=== PATIENT | female | born 1985 | race Two or more races ===

== ENCOUNTER 2018-02-28 10:26 | Inpatient (IN) | payer OTHER ==
[2018-02-28] MEDS: AMPICILLIN 1 GM PDS 1 GM in SODIUM CHLORIDE 0.9% 100 ML 100 ML IV SCH ×2 (00:15→20:10)
[2018-02-28] MEDS ORDERED: SODIUM CHLORIDE 0.9% FLUSH 10 ML SOL IV PRN (13:49)
[2018-02-28] MEDS ORDERED: FENTANYL 100MCG/2ML SOL IV PRN (13:49)
[2018-02-28] MEDS ORDERED: METHYLERGONOVINE MALEATE 0.2 MG/ML SOL IM PRN (13:49)
[2018-02-28] MEDS ORDERED: MEPIVACAINE HCL 1% MPF 30 ML/VIAL SOL INFIL PRN (13:49)
[2018-02-28] MEDS ORDERED: LACTATED RINGERS 1,000 ML IV PRN (13:49)
[2018-02-28] MEDS ORDERED: OXYTOCIN 10000 MU/ML SOL IM PRN (13:49)
[2018-02-28] MEDS ORDERED: CARBOPROST 250 MCG/ML SOL IM PRN (13:49)
[2018-02-28] MEDS ORDERED: AMPICILLIN 1 GM PDS 2 GM in SODIUM CHLORIDE 0.9% 100 ML 100 ML IV SCH (16:00)
[2018-02-28] MEDS ORDERED: AMPICILLIN 1 GM PDS ONE ×2 (16:04→19:49)
[2018-02-28] MEDS: SODIUM CHLORIDE 0.9% FLUSH 10 ML SOL IV SCH ×2 (16:15→20:10)
[2018-02-28] MEDS ORDERED: ROPIVACAINE HYDROCHLORIDE 5 MG/ML SOL ONE (20:46)
[2018-03-01] MEDS ORDERED: AMPICILLIN 1 GM PDS ONE (00:21)
[2018-03-01] MEDS ORDERED: MORPHINE SULFATE 0.5 MG/ML SOL ONE (01:36)
[2018-03-01] MEDS ORDERED: OXYTOCIN 10000 MU/ML SOL ONE (02:05)
[2018-03-01] MEDS ORDERED: MISOPROSTOL 100 MCG TAB ONE (02:05)
[2018-03-01] MEDS ORDERED: METHYLERGONOVINE MALEATE 0.2 MG/ML SOL ONE (02:06)
[2018-03-01] MEDS ORDERED: OXYTOCIN 10000 MU/ML 20,000 MU in LACTATED RINGERS 1,000 ML IV SCH (02:12)
[2018-03-01] MEDS ORDERED: MIDAZOLAM 2 MG/2 ML SOL ONE (02:32)
[2018-03-01] MEDS ORDERED: TEMAZEPAM 15MG 15 MG CAP PO PRN (02:41)
[2018-03-01] MEDS ORDERED: METHYLERGONOVINE MALEATE 0.2 MG TAB PO PRN (02:41)
[2018-03-01] MEDS ORDERED: BISACODYL 10 MG SUP PR PRN (02:41)
[2018-03-01] MEDS ORDERED: FLEET ENEMA PR PRN (02:41)
[2018-03-01] MEDS ORDERED: BENZOCAINE/MENTHOL 1 SPR TOP PRN (02:41)
[2018-03-01] MEDS ORDERED: WITCH HAZEL 1 EA PAD TOP PRN (02:41)
[2018-03-01] MEDS: APAP/HYDROCODONE 325/5 TAB PO PRN ×4 (02:54→23:15)
[2018-03-01] MEDS ORDERED: ONDANSETRON HCL 4 MG/2 ML SOL ONE (03:55)
[2018-03-01] MEDS ORDERED: PROPOFOL 500 MG/50 ML EMU IV ONE (03:55)
[2018-03-01] MEDS ORDERED: METOCLOPRAMIDE HYDROCHLORIDE 5 MG/ML SOL ONE (03:55)
[2018-03-01] MEDS ORDERED: DEXAMETHASONE 20 MG/5 ML (4 MG/ML SOL) ONE (03:55)
[2018-03-01] MEDS: AMPICILLIN 1 GM PDS 1 GM in SODIUM CHLORIDE 0.9% 100 ML 100 ML IV SCH ×2 (04:16→08:28)
[2018-03-01] MEDS ORDERED: BUPIVACAINE HCL 0.5% MPF 10 ML SOL ONE (04:57)
[2018-03-01] MEDS ORDERED: [UNRECOGNIZED DRUG - OTHER] IV ONE (06:05)
[2018-03-01] MEDS: IBUPROFEN 600 MG TAB PO PRN ×3 (08:26→22:02)
[2018-03-01] MEDS: DOCUSATE SODIUM 100 MG SGL PO SCH ×2 (08:27→22:00)
[2018-03-01] MEDS: SODIUM CHLORIDE 0.9% FLUSH 10 ML SOL IV SCH ×3 (08:32→22:01)
[2018-03-01] MEDS ORDERED: ONDANSETRON 4 MG ODT BU PRN (16:33)
[2018-03-01] MEDS ORDERED: ONDANSETRON 4 MG ODT ONE (16:38)
[2018-03-02] MEDS: APAP/HYDROCODONE 325/5 TAB PO PRN ×2 (08:46→19:27)
[2018-03-02] MEDS: DOCUSATE SODIUM 100 MG SGL PO SCH ×2 (09:54→21:42)
[2018-03-02] MEDS: SODIUM CHLORIDE 0.9% FLUSH 10 ML SOL IV SCH ×3 (09:56→21:42)
[2018-03-02 11:30] VITALS: RESP 16
[2018-03-02] MEDS: IBUPROFEN 600 MG TAB PO PRN ×2 (17:10→23:51)
[2018-03-03 03:37] VITALS: O2SAT 98
[2018-03-03] MEDS: SODIUM CHLORIDE 0.9% FLUSH 10 ML SOL IV SCH (06:24)
[2018-03-03] MEDS: APAP/HYDROCODONE 325/5 TAB PO PRN (06:26)
[2018-03-03] MEDS: DOCUSATE SODIUM 100 MG SGL PO SCH (08:47)
[2018-03-03] MEDS ORDERED: FERROUS GLUCONATE 324 MG TABLET PO SCH (09:00)
[2018-03-03 11:46] VITALS: BP 101/74; PULSE 66; TEMP 97.1
== END 2018-03-03 11:00 | disposition home or self-care (01) | DRG 767 ==
LOC: OBSVTOIN 10:26 → OB 10:26
PROVIDERS: ADMIT Family Medicine; ATTEND Family Medicine
PROC: 10907ZC Drainage of Amniotic Fluid, Therapeutic from Products of Conception, Via Natural or Artificial Opening (ICD-10-PCS; 2018-03-01)
PROC: 10E0XZZ Delivery of Products of Conception, External Approach (ICD-10-PCS; principal; 2018-03-02)
PROC: 0UT70ZZ Resection of Bilateral Fallopian Tubes, Open Approach (ICD-10-PCS; 2018-03-03)
DX: O80 Encounter for full-term uncomplicated delivery (principal); Z37.0 Single live birth; O24.410 Gestational diabetes mellitus in pregnancy, diet controlled; O09.43 Supervision of pregnancy with grand multiparity, third trimester; Z3A.38 38 weeks gestation of pregnancy; O69.81X0 Labor and delivery complicated by cord around neck, without compression, not applicable or unspecified
CPT/HCPCS: 36415; 59025; 85018; J0290; J1100; J2210; J2250; J2274; J2405; J2590; J2765; J2795; A6402; A9270-GY; J2704